=== PATIENT | female | born 1955 | race Caucasian/White ===

== ENCOUNTER 2018-09-25 12:28 | Emergency (ER) | payer SELFPAY | END 2018-09-25 14:10 | disposition home or self-care (01) | LOC: FTE 12:28 | DX: M25.511 Pain in right shoulder (principal) | CPT/HCPCS: 99282 ==

== ENCOUNTER 2018-09-29 14:34 | Emergency (ER) | payer SELFPAY | END 2018-09-29 16:58 | disposition home or self-care (01) | LOC: FTE 14:34 | DX: M75.51 Bursitis of right shoulder (principal) | CPT/HCPCS: 99283 ==